=== PATIENT | male | born 1965 | race Asian ===

== ENCOUNTER 2018-05-06 06:21 | Day surgery (SDC) | payer OTHER ==
[2018-05-06] MEDS ORDERED: FENTAnyl 50 MCG/ML VIAL (08:47)
[2018-05-06] MEDS ORDERED: MIDAZOLAM 1 MG/ML 2 ML INJ ×2 (08:47)
== END 2018-05-06 08:50 | disposition home or self-care (01) ==
LOC: GIL 06:21
DX: Z12.11 Encounter for screening for malignant neoplasm of colon (principal); K64.8 Other hemorrhoids; D12.5 Benign neoplasm of sigmoid colon; I10 Essential (primary) hypertension
CPT/HCPCS: 45380; 88305